=== PATIENT | female | born 1980 | race Caucasian/White ===

== ENCOUNTER 2017-06-19 10:15 | Emergency (ER) | payer MEDICAID, OTHER ==
[~2017-06-19] VITALS: Ht 172.7 cm; Wt 127.9 kg
[~2017-06-19 10:15] MED LIST: DIP25C PO; HYDR-4683 PO; LEVO500T21 PO; SUMA5INJ SUBCUT
[2017-06-19 10:17] VITALS: BP 117/56
[2017-06-19] MEDS ORDERED: HYDROcodone-ACET 10/325MG TAB PO ONE (10:45)
[2017-06-19 11:08] LABS: Basophils # (auto) 0.1 uL; Basophils % (auto) 0.5 % (0.0-2.0); Eosinophils # (auto) 0.1 uL; Eosinophils % (auto) 1.2 % (0.0-7.0); Hematocrit 45.7 % (36.0-46.0); Hemoglobin 15.3 g/dL (12.2-16.2); Lymphocytes # (auto) 2.2 uL; Lymphocytes % (auto) 19.9 % (10.0-50.0); Mean Corpuscular Hemoglobin 30.7 pg (28.0-32.0); Mean Corpuscular Hgb Conc. 33.4 g/dL (32.0-36.0); Mean Corpuscular Volume 91.9 fL (80.0-100.0); Monocytes # (auto) 0.7 uL; Monocytes % (auto) 6.8 % (0.0-12.0); Neutrophils # (auto) 7.7 uL; Neutrophils % (auto) 71.6 % (37.0-80.0); Nucleated Red Blood Cells % 0.1 %; Platelet Count (auto) 257 10^3/uL (140-450); Red Blood Cells 4.97 10^6/uL (4.0-5.20); Red Cell Distribution Width 13.1 % (11.8-14.3); White Blood Cell 10.8 10^3/uL (4.4-10.8)
[2017-06-19 11:38] LABS: Albumin 3.7 g/dL (3.4-5.0); Calcium 8.9 mg/dL (8.5-10.1)
[2017-06-19 11:41] LABS: Bilirubin, Total 0.3 mg/dL (0.2-1.0); Total Protein 7.3 g/dL (6.4-8.2)
== END 2017-06-19 14:25 | disposition home or self-care (01) ==
LOC: ER 10:15
DX: R51 Headache (principal); F17.210 Nicotine dependence, cigarettes, uncomplicated; Z90.49 Acquired absence of other specified parts of digestive tract
CPT/HCPCS: 36415; 70450; 80053; 85025; 93005

== ENCOUNTER 2019-07-04 09:44 | Inpatient (IN) | payer OTHER ==
[~2019-07-04] VITALS: Ht 170.2 cm; Wt 132.8 kg
[~2019-07-04 09:44] MED LIST changes: -HYDR-4683 PO; +HYDR-4833 PO
[2019-07-04 10:19] LABS: Basophils # (auto) 0.1 uL; Basophils % (auto) 0.4 % (0.0-2.0); Eosinophils # (auto) 0.2 uL; Eosinophils % (auto) 1.2 % (0.0-7.0); Hematocrit 44.2 % (36.0-46.0); Lymphocytes # (auto) 3.2 uL; Lymphocytes % (auto) 19.2 % (10.0-50.0); Mean Corpuscular Hemoglobin 31.1 pg (28.0-32.0); Mean Corpuscular Volume 91.4 fL (80.0-100.0); Monocytes # (auto) 1.4 uL; Monocytes % (auto) 8.4 % (0.0-12.0); Neutrophils # (auto) 11.9 uL; Neutrophils % (auto) 70.8 % (37.0-80.0); Platelet Count (auto) 263 10^3/uL (140-450); Red Blood Cells 4.83 10^6/uL (4.0-5.20); Red Cell Distribution Width 13.1 % (11.8-14.3); White Blood Cell 16.8 10^3/uL (4.4-10.8)
[2019-07-04 10:38] LABS: Urine Bacteria FEW /hpf (None Seen); Urine Blood TRACE /uL (Negative); Urine Mucus FEW (None Seen); Urine Specific Gravity 1.018 (1.001-1.035); Urine WBC <1 /hpf (0 - 5)
[2019-07-04 10:38] LABS: Albumin 3.8 g/dL (3.4-5.0); Calcium 8.9 mg/dL (8.5-10.1)
[2019-07-04 10:42] LABS: BUN/Creatinine Ratio 11.4; Bilirubin, Total 0.5 mg/dL (0.2-1.0); Total Protein 7.7 g/dL (6.4-8.2)
[2019-07-04] MEDS ORDERED: PROMETHAZINE HCL 25 MG/ML 1ML IV ONE (11:00)
[2019-07-04] MEDS ORDERED: HYDROmorphone HCL 2 MG/ML VL IV ONE (11:00)
[2019-07-04] MEDS ORDERED: cefTRIAXone 1GM/50ML D5W 50 ML IV ONE (12:15)
[2019-07-04] MEDS ORDERED: metroNIDAZOLE 500MG/100ML 100 ML IV ONE (12:15)
[2019-07-04] MEDS ORDERED: MORPHINE SULF INJ 2 MG/ML SYRINGE 1ML IV PRN (13:00)
[2019-07-04] MEDS ORDERED: NITROGLYCERIN 0.4 MG SL TAB SL PRN (13:00)
[2019-07-04] MEDS ORDERED: SUMAtriptan SUCCINATE 6 MG/0.5 ML VL SC PRN (13:00)
[2019-07-04] MEDS ORDERED: ALUM & MAG HYDROX-SIMETH LIQ(MAALOX) 30 ML PO PRN (13:00)
[2019-07-04] MEDS ORDERED: ONDANSETRON HCL 4 MG/2 ML VIAL IV PRN (13:00)
[2019-07-04] MEDS ORDERED: DOCUSATE SOD 100 MG CAP PO PRN (13:00)
[2019-07-04] MEDS ORDERED: TEMAZEPAM 15 MG CAP PO PRN (13:00)
[2019-07-04] MEDS: HYDROcodone-ACET 5/325MG TAB PO PRN (13:49)
[2019-07-04] MEDS: metroNIDAZOLE 500MG/100ML 100 ML IV SCH ×2 (14:00→21:31)
--- NOTE | 2019-07-04 14:30 | NUR ---
MED/SURG Admit from [facility] admitted to MED/SURG unit after SBAR received. Patient oriented to AIDAN HANNAH, RN primary RN, unit, room, bed, and unit policies regarding patient care and visiting hours. No S/S of SOB or distress at this time. Patient weighed by bed scale and encouraged to call if they need something. All questions and concerns addressed, patient verbalized understanding.
[2019-07-04 14:48] VITALS: BP 132/62
[2019-07-04] MEDS ORDERED: ALBUAER3 IN (15:09)
[2019-07-04] MEDS ORDERED: IBUP800T24 PO (15:09)
[2019-07-04] MEDS ORDERED: SUMA100T15 PO (15:09)
[2019-07-04] MEDS ORDERED: TRIA0.5C10 TOP (15:09)
--- NOTE | 2019-07-04 15:10 | NUR ---
ROUNDED WITH DOCTOR Jalen VILLEDA NEW ORDERS RECEIVED SEE EMR FOR ORDERS.
[2019-07-04] MEDS ORDERED: HYDROmorphone HCL 2 MG/ML VL IV PRN ×2 (15:15→15:45)
--- NOTE | 2019-07-04 15:40 | NUR ---
PAGED DR. WASHINGTON. AWAITING CALL BACK.
--- NOTE | 2019-07-04 15:42 | NUR ---
RECEIVED CALL BACK FROM DR. WASHINGTON. RN DISCUSSED THE PATIENTS REQUEST FOR BIPAP DURING SLEEP. NEW ORDERS RECEIVED, READ BACK AND VERIFIED FOR CPAP.
--- NOTE | 2019-07-04 15:50 | NUR ---
PAGED DR. WASHINGTON. AWAITING CALL BACK.
--- NOTE | 2019-07-04 15:56 | NUR ---
RECEIVED CALL BACK FROM DR. WASHINGTON. RN NOTIFIED DR. WASHINGTON THAT THE PATIENT USES BIPAP RATHER THAN THE CPAP DURING SLEEP. MD AWARE AND NO NEW ORDERS RECEIVED AT THIS TIME.
[2019-07-04 17:00] VITALS: BP 120/72
--- NOTE | 2019-07-04 17:50 | NUR ---
IV removal LEFT AC IV DC'd with clean sterile technique, catheter fully intact. Pressure dressing applied to site. Patient tolerated well.
--- NOTE | 2019-07-04 17:50 | NUR ---
IV insertion IV access obtained, via clean sterile technique by inserting 22 gauge catheter at RIGHT HAND after 1 attempt(s). IV secured properly. No trauma to site. Patient tolerated well.
--- NOTE | 2019-07-04 19:08 | NUR ---
PAGED FOR BIPAP - PLACED PT ON BIPAP WITH SETTINGS 10/5, BUR 12, AND AN FIO2 OF 30%. PT FITTED WITH A FULL MEDIUM FACE MASK. PT STATED AIR WAS LEAKING INTO HER EYE. PT FITTED WITH A TYPE C UNDER THE NOSE MASK. PT IS AGITATED AT THIS TIME. BIPAP REMOVED AND PLACED ON STANDBY. RN DACIA AT BEDSIDE. WILL RETURN FOR BIPAP PLACEMENT.
--- NOTE | 2019-07-04 19:20 | NUR ---
OPENING SHIFT NOTE Assumed care of patient, awake and alert x4. Patient is complaining of left flank pain radiating to the lower abdomen (pain scale 6/10), will medicate patient as ordered by MD. Patient denies shortness of breath at this time. Instructed on plan of care and to call for assistance as needed, patient verbalized understanding. Bed is locked in lowest position, side rails x 2 are up, and call light is within reach.
[2019-07-04 20:00] VITALS: BP 104/64
[2019-07-04 20:02] VITALS: BP 120/72
--- NOTE | 2019-07-04 20:23 | NUR ---
RT PAGED RE: BIPAP RT paged regarding BIPAP. Patient is requesting to be placed on BIPAP.
[2019-07-04 22:00] VITALS: BP 104/64
[2019-07-05] MEDS: ACETAMINOPHEN 325 MG TAB PO PRN ×2 (03:17→13:57)
[2019-07-05 05:22] VITALS: BP 106/70
[2019-07-05] MEDS: metroNIDAZOLE 500MG/100ML 100 ML IV SCH ×3 (05:48→21:51)
[2019-07-05 06:45] LABS: Basophils # (auto) 0 uL; Basophils % (auto) 0.3 % (0.0-2.0); Eosinophils # (auto) 0.2 uL; Eosinophils % (auto) 1.8 % (0.0-7.0); Hematocrit 41.2 % (36.0-46.0); Hemoglobin 14.1 g/dL (12.2-16.2); Lymphocytes # (auto) 2.8 uL; Lymphocytes % (auto) 21.6 % (10.0-50.0); Mean Corpuscular Hemoglobin 31.3 pg (28.0-32.0); Mean Corpuscular Hgb Conc. 34.2 g/dL (32.0-36.0); Mean Corpuscular Volume 91.5 fL (80.0-100.0); Monocytes # (auto) 1.5 uL; Monocytes % (auto) 11.5 % (0.0-12.0); Neutrophils # (auto) 8.4 uL; Neutrophils % (auto) 64.8 % (37.0-80.0); Platelet Count (auto) 248 10^3/uL (140-450); Red Blood Cells 4.51 10^6/uL (4.0-5.20); Red Cell Distribution Width 13.2 % (11.8-14.3)
[2019-07-05 07:01] LABS: INR 1.02 (0.9-1.15); Partial Thromboplastin Time 29.6 sec (23.64-32.05)
[2019-07-05 07:04] LABS: Calcium 8.4 mg/dL (8.5-10.1); Magnesium 2.2 mg/dL (1.6-2.6); Potassium 3.6 mmol/L (3.5-5.1)
[2019-07-05 07:10] LABS: Albumin 3.2 g/dL (3.4-5.0); Bilirubin, Total 0.6 mg/dL (0.2-1.0); Phosphorus 3.3 mg/dL (2.5-4.90); Total Protein 6.8 g/dL (6.4-8.2)
--- NOTE | 2019-07-05 07:30 | NUR ---
Opening Shift Note Assumed care of patient, who is alert and oriented x4. No S/S of distress/SOB. Patient is reporting some residual migraine pain to the frontal sinus area. IV to right hand is patent and intact. Bed is low, locked with 2x side rails up. Call light is within reach. Instructed on POC and to call for assist PRN, will continue to monitor for changes Q1hr and PRN.
[2019-07-05 09:00] VITALS: BP 122/66
[2019-07-05] MEDS: ENOXAPARIN SOD 40 MG/0.4 ML SYRINGE SC SCH (09:26)
[2019-07-05] MEDS: LEVOFLOXACIN 500MG 100 ML IV SCH (09:26)
--- NOTE | 2019-07-05 10:57 | NUR ---
Dr. Darling Rounding Dr. Darling at bedside. Updated patient on POC. New orders received carried out. Patient's diet will be advanced to clear liquid for lunch and if tolerated well can be advanced to full liquid for dinner. MD advised patient to let this nurse know if she experiences any nausea/stomach pain when advancing diet. Patient verbalized understanding.
--- NOTE | 2019-07-05 11:30 | NUR ---
Patient off unit Patient off unit to smoke. No distress noted upon departure.
--- NOTE | 2019-07-05 11:40 | NUR ---
Returned to room No distress noted upon return
[2019-07-05 13:00] VITALS: BP 146/76
--- NOTE | 2019-07-05 14:00 | NUR ---
Advanced Diet Dr. Nunez rounded on patient and has advanced patients diet to regular. The cafeteria brought up a tray, and patient consumed 90% of food on tray. Patient is reporting some abdominal discomfort but she states it is tolerable and would like to continue with regular diet for dinner. Will continue to monitor.
--- NOTE | 2019-07-05 19:00 | NUR ---
Rounds Patient resting in bed with even and unlabored respirations. No reports of abdominal discomfort reported at this time. Will continue to monitor.
[2019-07-05 21:46] VITALS: BP 136/80
--- NOTE | 2019-07-06 01:15 | NUR ---
Rounds Patient is resting in bed with eyes closed. Respirations are even and unlabored. No reports of abdominal discomfort at this time. Bed is low with 2x rails up. Call light is within reach. Will continue to monitor.
--- NOTE | 2019-07-06 03:00 | NUR ---
Assumed care of patient. Patient is sleeping no s/s of distress noted.
--- NOTE | 2019-07-06 03:00 | NUR ---
Care Endorsed To Zofia Christiansen All questions answered.
[2019-07-06] MEDS: metroNIDAZOLE 500MG/100ML 100 ML IV SCH ×3 (04:45→21:25)
[2019-07-06] MEDS: HYDROcodone-ACET 5/325MG TAB PO PRN ×3 (04:46→17:30)
[2019-07-06 05:00] VITALS: BP 100/55
[2019-07-06 09:00] VITALS: BP 101/56
[2019-07-06] MEDS: ENOXAPARIN SOD 40 MG/0.4 ML SYRINGE SC SCH (10:00)
[2019-07-06] MEDS: LEVOFLOXACIN 500MG 100 ML IV SCH (10:00)
[2019-07-06] MEDS ORDERED: OMNIPAQUE ORAL SOLN 500ml 12mg/ml PO ONE (10:16)
[2019-07-06 13:00] VITALS: BP 146/57
[2019-07-06 17:00] VITALS: BP 146/77
--- NOTE | 2019-07-06 20:00 | NUR ---
Opening Shift Note Assumed care of patient, awake and alert x4. No S/S of distress/SOB on room air. Denies ABD pain. Reports diarrhea she has had about 8-10 episodes today. Pending C-Diff culture. Bed locked in lowest position call light within reach. Instructed on POC and to call for assist PRN, will continue to monitor for changes Q1hr and PRN.
[2019-07-06 21:46] VITALS: BP 142/66
[2019-07-07 05:00] VITALS: BP 110/59
[2019-07-07] MEDS: metroNIDAZOLE 500MG/100ML 100 ML IV SCH (05:41)
[2019-07-07 06:01] LABS: Basophils # (auto) 0.1 uL; Basophils % (auto) 0.6 % (0.0-2.0); Eosinophils # (auto) 0.3 uL; Eosinophils % (auto) 3.3 % (0.0-7.0); Hematocrit 40.4 % (36.0-46.0); Hemoglobin 13.9 g/dL (12.2-16.2); Lymphocytes # (auto) 2.8 uL; Lymphocytes % (auto) 29.6 % (10.0-50.0); Mean Corpuscular Hemoglobin 31.5 pg (28.0-32.0); Mean Corpuscular Hgb Conc. 34.3 g/dL (32.0-36.0); Mean Corpuscular Volume 91.8 fL (80.0-100.0); Monocytes # (auto) 0.8 uL; Neutrophils # (auto) 5.6 uL; Neutrophils % (auto) 58.5 % (37.0-80.0); Platelet Count (auto) 241 10^3/uL (140-450); Red Cell Distribution Width 13.2 % (11.8-14.3); White Blood Cell 9.6 10^3/uL (4.4-10.8)
[2019-07-07 06:22] LABS: Potassium 3.8 mmol/L (3.5-5.1)
[2019-07-07 06:27] LABS: BUN/Creatinine Ratio 14.1; Calcium 8.4 mg/dL (8.5-10.1)
--- NOTE | 2019-07-07 07:20 | NUR ---
Opening Shift Note Assumed care of patient, awake and alert x4. No S/S of distress/SOB on room air. Denies ABD pain. Reports diarrhea she has had about 8-10 episodes ON 07/06/19. Pending C-Diff culture. Bed locked in lowest position call light within reach. Instructed on POC and to call for assist PRN, will continue to monitor for changes Q1hr and PRN.
--- NOTE | 2019-07-07 07:51 | NUR ---
PT OFF UNIT TO SMOKE. AMA IN CHART
--- NOTE | 2019-07-07 08:02 | NUR ---
PT RETURNED TO UNIT
[2019-07-07 08:47] VITALS: BP 103/59
[2019-07-07] MEDS: LEVOFLOXACIN 500MG 100 ML IV SCH (09:11)
[2019-07-07] MEDS: ENOXAPARIN SOD 40 MG/0.4 ML SYRINGE SC SCH (09:12)
[2019-07-07] MEDS ORDERED: SOD CHL 0.9%/ KCL 40MEQ 1,000 ML IV ONE (09:45)
[2019-07-07 11:43] VITALS: BP 103/92
[2019-07-07 12:19] VITALS: BP 146/67
[2019-07-07] MEDS ORDERED: metroNIDAZOLE 500 MG TAB PO SCH (14:00)
--- NOTE | 2019-07-07 15:14 | NUR ---
CALLED IN PRESCRIPTION TO [facility] #[id number] CALLED IN FLAGYL 500MG PO TID #30 LEVAQUIN 500MG PO #10
--- NOTE | 2019-07-07 16:10 | NUR ---
Discharge instructions given as ordered. Encourage to follow up with PMD as instructed. All questions and concerns addressed. Patient verbalized understanding. Medication reconciliation form completed and copy given to patient. . IV removed with catheter intact, pressure dressing applied,. Patient taken to vehicle via wheelchair with all personal belongings, accompanied by staff and family member. No distress noted at time of departure.
== END 2019-07-07 16:10 | disposition home or self-care (01) | DRG 392 ==
LOC: ER 09:44 → OVERFLOW 09:45 → EAST 14:33
PROVIDERS: ADMIT Hospitalist; ATTEND Internal Medicine Nephrology
DX: K57.32 Diverticulitis of large intestine without perforation or abscess without bleeding (principal); Z68.42 Body mass index [BMI] 45.0-49.9, adult; E66.01 Morbid (severe) obesity due to excess calories; E78.5 Hyperlipidemia, unspecified; F17.210 Nicotine dependence, cigarettes, uncomplicated; G43.909 Migraine, unspecified, not intractable, without status migrainosus; G47.33 Obstructive sleep apnea (adult) (pediatric); G89.29 Other chronic pain; K59.00 Constipation, unspecified; R73.03 Prediabetes; Z82.49 Family history of ischemic heart disease and other diseases of the circulatory system; Z83.3 Family history of diabetes mellitus; Z87.442 Personal history of urinary calculi; Z90.49 Acquired absence of other specified parts of digestive tract; Z88.7 Allergy status to serum and vaccine; Z88.8 Allergy status to other drugs, medicaments and biological substances; Z88.1 Allergy status to other antibiotic agents; Z88.5 Allergy status to narcotic agent; Z91.013 Allergy to seafood
CPT/HCPCS: 36415; 74176; 80048; 80053; 80061; 81001; 81025; 82962; 83036; 83690; 83735; 84100; 84702; 85025; 85610; 85730; 87045; 87427; 87493; 94660; 96365; 96375; G0378; J0696; J1956; J3490

== ENCOUNTER → 2019-08-05 | Emergency (ER) | payer OTHER ==
[~2019-08-05] VITALS: Ht 170.2 cm; Wt 133.4 kg
[~2019-08-05] MED LIST changes: +ALBUAER3 IN; -DIP25C PO; -HYDR-4833 PO; -LEVO500T21 PO; +LORazepam 2MG/ML-1ML VIAL IV ONE; +SODIUM CHLORIDE 0.9% 1,000 ML IV ONE; +SUMA100T15 PO; -SUMA5INJ SUBCUT; +TRIA0.5C10 TOP
[2019-08-05 13:42] LABS: Basophils # (auto) 0.1 10 ^3/uL (0-0.2); Basophils % (auto) 0.7 % (0.0-2.0); Eosinophils # (auto) 0.3 10 ^3/uL (0-0.8); Hematocrit 42.5 % (36.0-46.0); Hemoglobin 14.2 g/dL (12.2-16.2); Lymphocytes # (auto) 2.2 10 ^3/uL (0.4-5.4); Lymphocytes % (auto) 24.5 % (10.0-50.0); Mean Corpuscular Hemoglobin 30.5 pg (28.0-32.0); Mean Corpuscular Hgb Conc. 33.4 g/dL (32.0-36.0); Mean Corpuscular Volume 91.3 fL (80.0-100.0); Monocytes # (auto) 1.1 10 ^3/uL (0-1.3); Monocytes % (auto) 12.5 % (0.0-12.0); Neutrophils # (auto) 5.3 10 ^3/uL (1.6-8.6); Neutrophils % (auto) 59.3 % (37.0-80.0); Platelet Count (auto) 242 10^3/uL (140-450); Red Blood Cells 4.65 10^6/uL (4.0-5.20); Red Cell Distribution Width 13.3 % (11.8-14.3)
[2019-08-05 14:45] LABS: Urine Bacteria NONE SEEN /hpf (None Seen); Urine Blood 2+ /uL (Negative); Urine Specific Gravity 1.007 (1.001-1.035); Urine WBC <1 /hpf (0 - 5)
[2019-08-05 14:50] LABS: Alcohol, Urine < 3.0 mg/dL (0-5); Amphetamine Screen, Urine NEGATIVE (NEGATIVE); Barbiturate Scree,Urine NEGATIVE (NEGATIVE); Benzodiazephine Screen, Urine NEGATIVE (NEGATIVE); Cannabinoid Screen, Urine NEGATIVE (NEGATIVE); Cocaine Screen, Urine NEGATIVE (NEGATIVE); Opiate Scree,Urine NEGATIVE (NEGATIVE); Phencyclidine Screen, Urine NEGATIVE (NEGATIVE)
[2019-08-05 15:40] VITALS: BP 107/54
== END | disposition home or self-care (01) ==
LOC: EDUNIT# 12:19 → ER 12:43 → EDBD 12:43
DX: R42 Dizziness and giddiness (principal); E86.0 Dehydration; F17.210 Nicotine dependence, cigarettes, uncomplicated; Z90.49 Acquired absence of other specified parts of digestive tract; Z88.5 Allergy status to narcotic agent; Z88.1 Allergy status to other antibiotic agents; Z88.6 Allergy status to analgesic agent; Z91.013 Allergy to seafood; Z88.8 Allergy status to other drugs, medicaments and biological substances; Z88.7 Allergy status to serum and vaccine; Z79.899 Other long term (current) drug therapy
CPT/HCPCS: 36415; 70450; 80307; 81001; 85025; 96361; 96374; 99284; J2060; J7030

== ENCOUNTER 2020-07-19 17:24 | Emergency (ER) | payer OTHER ==
[~2020-07-19] VITALS: Ht 170.2 cm; Wt 136.1 kg
[~2020-07-19 17:24] MED LIST changes: -LORazepam 2MG/ML-1ML VIAL IV ONE; -SODIUM CHLORIDE 0.9% 1,000 ML IV ONE; +TRIA0.5C TOP; -TRIA0.5C10 TOP
[2020-07-19 19:33] LABS: Basophils # (auto) 0.1 10 ^3/uL (0-0.2); Basophils % (auto) 0.5 % (0.0-2.0); Eosinophils # (auto) 0.2 10 ^3/uL (0-0.8); Eosinophils % (auto) 1.6 % (0.0-7.0); Hematocrit 43.4 % (36.0-46.0); Hemoglobin 14.6 g/dL (12.2-16.2); Lymphocytes # (auto) 4.5 10 ^3/uL (0.4-5.4); Mean Corpuscular Hemoglobin 30.5 pg (28.0-32.0); Mean Corpuscular Hgb Conc. 33.7 g/dL (32.0-36.0); Mean Corpuscular Volume 90.5 fL (80.0-100.0); Monocytes # (auto) 0.9 10 ^3/uL (0-1.3); Monocytes % (auto) 6.3 % (0.0-12.0); Neutrophils # (auto) 9.3 10 ^3/uL (1.6-8.6); Neutrophils % (auto) 61.6 % (37.0-80.0); Platelet Count (auto) 278 10^3/uL (140-450); Red Blood Cells 4.79 10^6/uL (4.0-5.20); Red Cell Distribution Width 13.4 % (11.8-14.3)
[2020-07-19 19:48] LABS: Potassium 3.5 mmol/L (3.5-5.1)
[2020-07-19 19:54] LABS: Albumin 3.6 g/dL (3.4-5.0); BUN/Creatinine Ratio 10.8; Bilirubin, Total 0.3 mg/dL (0.2-1.0); Calcium 8.6 mg/dL (8.5-10.1); Total Protein 7.5 g/dL (6.4-8.2)
[2020-07-19] MEDS ORDERED: ONDANSETRON HCL 4 MG/2 ML VIAL IV ONE (20:45)
[2020-07-19] MEDS ORDERED: fentaNYL CITRATE 100 MCG/2 ML VL IV ONE (20:45)
[2020-07-19] MEDS ORDERED: SODIUM CHLORIDE 0.9% 1,000 ML IV ONE (21:00)
[2020-07-19] MEDS ORDERED: METOCLOPRAMIDE HCL 5MG/ml INJ 2ml VIAL IV ONE (21:00)
[2020-07-19] MEDS ORDERED: IOHEXOL 300 MG/ML 100ML BOTTLE IJ ONE (22:08)
[2020-07-19 23:37] LABS: Urine Bacteria FEW /hpf (None Seen); Urine Blood Negative /uL (Negative); Urine Mucus FEW (None Seen); Urine Specific Gravity > 1.050 (1.001-1.035); Urine WBC 3 /hpf (0 - 5)
[2020-07-20] MEDS ORDERED: cefTRIAXone 1GM/50ML D5W 50 ML IV ONE (00:15)
[2020-07-20 00:51] VITALS: BP 102/41
== END 2020-07-20 01:36 | disposition home or self-care (01) ==
LOC: ER 17:24
DX: E86.0 Dehydration (principal); N39.0 Urinary tract infection, site not specified; N20.0 Calculus of kidney; F17.210 Nicotine dependence, cigarettes, uncomplicated; Z90.49 Acquired absence of other specified parts of digestive tract; Z79.899 Other long term (current) drug therapy; Z88.6 Allergy status to analgesic agent; Z88.5 Allergy status to narcotic agent
CPT/HCPCS: 36415; 74177; 80053; 81001; 81025; 85025; 96361; 96365; 96375; 99285; J0696; J2765; J3010; Q9967

== ENCOUNTER 2020-08-09 07:49 | Emergency (ER) | payer OTHER ==
[~2020-08-09] VITALS: Ht 170.2 cm; Wt 134.7 kg
[2020-08-09] MEDS ORDERED: HYDROmorphone HCL 2 MG/ML VL IV ONE (08:15)
[2020-08-09] MEDS ORDERED: SODIUM CHLORIDE 0.9% 1,000 ML IV ONE (08:15)
[2020-08-09] MEDS ORDERED: PROMETHAZINE HCL 25 MG/ML 1ML IV PRN (08:15)
[2020-08-09 08:23] LABS: Basophils # (auto) 0.1 10 ^3/uL (0-0.2); Basophils % (auto) 0.4 % (0.0-2.0); Eosinophils # (auto) 0.3 10 ^3/uL (0-0.8); Eosinophils % (auto) 2.4 % (0.0-7.0); Hematocrit 41.2 % (36.0-46.0); Hemoglobin 14.1 g/dL (12.2-16.2); Lymphocytes # (auto) 4.6 10 ^3/uL (0.4-5.4); Lymphocytes % (auto) 31.5 % (10.0-50.0); Mean Corpuscular Hemoglobin 31.2 pg (28.0-32.0); Mean Corpuscular Hgb Conc. 34.3 g/dL (32.0-36.0); Mean Corpuscular Volume 90.9 fL (80.0-100.0); Monocytes # (auto) 0.8 10 ^3/uL (0-1.3); Monocytes % (auto) 5.8 % (0.0-12.0); Neutrophils # (auto) 8.7 10 ^3/uL (1.6-8.6); Neutrophils % (auto) 59.9 % (37.0-80.0); Nucleated Red Blood Cells % 0.1 %; Platelet Count (auto) 263 10^3/uL (140-450); Red Blood Cells 4.53 10^6/uL (4.0-5.20); Red Cell Distribution Width 13.3 % (11.8-14.3); White Blood Cell 14.5 10^3/uL (4.4-10.8)
[2020-08-09 08:30] VITALS: BP 106/73
[2020-08-09 08:49] LABS: Albumin 3.5 g/dL (3.4-5.0); Calcium 8.7 mg/dL (8.5-10.1); Potassium 3.7 mmol/L (3.5-5.1)
[2020-08-09 08:53] LABS: Bilirubin, Total 0.2 mg/dL (0.2-1.0); Total Protein 7.4 g/dL (6.4-8.2)
[2020-08-09 09:40] LABS: Magnesium 2.2 mg/dL (1.6-2.6)
[2020-08-09 09:45] LABS: Alcohol, Urine < 3.0 mg/dL (0-10); Amphetamine Screen, Urine NEGATIVE (NEGATIVE); Barbiturate Scree,Urine NEGATIVE (NEGATIVE); Benzodiazephine Screen, Urine NEGATIVE (NEGATIVE); Cannabinoid Screen, Urine NEGATIVE (NEGATIVE); Cocaine Screen, Urine NEGATIVE (NEGATIVE); Opiate Scree,Urine NEGATIVE (NEGATIVE); Phencyclidine Screen, Urine NEGATIVE (NEGATIVE)
[2020-08-09] MEDS ORDERED: IOHEXOL 300 MG/ML 100ML BOTTLE IJ ONE (09:47)
[2020-08-09 09:49] LABS: Urine Bacteria FEW /hpf (None Seen); Urine Blood TRACE /uL (Negative); Urine Specific Gravity 1.007 (1.001-1.035); Urine WBC <1 /hpf (0 - 5)
== END 2020-08-09 11:23 | disposition home or self-care (01) ==
LOC: ER 07:49
DX: K52.9 Noninfective gastroenteritis and colitis, unspecified (principal); N39.0 Urinary tract infection, site not specified; F17.210 Nicotine dependence, cigarettes, uncomplicated; Z79.899 Other long term (current) drug therapy; Z88.6 Allergy status to analgesic agent; Z88.8 Allergy status to other drugs, medicaments and biological substances
CPT/HCPCS: 36415; 74177; 80053; 80307; 81001; 81025; 83690; 83735; 84702; 85025; 93005; 96361; 96374; 96375; 99285; J1170; J2550; Q9967